=== PATIENT | male | born 1990 ===

== ENCOUNTER 2017-12-12 22:30 | Emergency (ER) | payer OTHER ==
[~2017-12-12] VITALS: Ht 170.2 cm; Wt 89.4 kg
== END 2017-12-12 23:23 | disposition home or self-care (01) ==
LOC: ER 22:30
DX: S61.412A Laceration without foreign body of left hand, initial encounter (principal); W45.8XXA Other foreign body or object entering through skin, initial encounter; Y93.89 Activity, other specified; Y92.098 Other place in other non-institutional residence as the place of occurrence of the external cause; Y99.8 Other external cause status

== ENCOUNTER 2017-12-18 20:34 | Emergency (ER) | payer OTHER ==
[~2017-12-18] VITALS: Ht 167.6 cm; Wt 89.4 kg
== END 2017-12-18 21:43 | disposition home or self-care (01) ==
LOC: ER 20:34
DX: T81.4XXA Infection following a procedure, initial encounter (principal); B99.8 Other infectious disease; Z48.02 Encounter for removal of sutures

== ENCOUNTER 2021-01-30 20:16 | Emergency (ER) | payer OTHER ==
[~2021-01-30] VITALS: Ht 172.7 cm; Wt 95.3 kg
[2021-01-30] MEDS ORDERED: CAMBIA50 MG (20:27)
[2021-01-31] MEDS ORDERED: IVERMECTIN3 MG PO (00:49)
[2021-01-31] MEDS ORDERED: ACETAMINOPHEN650 M2 PO (00:49)
[2021-01-31] MEDS ORDERED: AZITHROMYCIN500 MG PO (00:49)
[2021-01-31] MEDS ORDERED: VITAMIN D3-ALO1 EACH PO (00:49)
[2021-01-31] MEDS ORDERED: MUCINEX DM ER1 EAC1 PO (00:49)
[2021-01-31] MEDS ORDERED: VITAMIN C WIT1000 MG PO (00:49)
[2021-01-31] MEDS ORDERED: MELATONIN10 M2 PO (00:49)
== END 2021-01-31 01:10 | disposition home or self-care (01) ==
LOC: ER 20:16
DX: B34.9 Viral infection, unspecified (principal); Z20.822 Contact with and (suspected) exposure to COVID-19

== ENCOUNTER 2021-07-03 13:41 | Emergency (ER) | payer OTHER ==
[~2021-07-03] VITALS: Ht 172.7 cm; Wt 97.5 kg
[~2021-07-03 13:41] MED LIST: ACETAMINOPHEN650 M2 PO; AZITHROMYCIN500 MG PO; CAMBIA50 MG; IVERMECTIN3 MG PO; MELATONIN10 M2 PO; MUCINEX DM ER1 EAC1 PO; VITAMIN C WIT1000 MG PO; VITAMIN D3-ALO1 EACH PO
[2021-07-03] MEDS ORDERED: CLEOCIN HCL300 MG PO (15:54)
[2021-07-03] MEDS ORDERED: TORADOL60 MG IM (15:54)
== END 2021-07-03 16:08 | disposition home or self-care (01) ==
LOC: ER 13:41
DX: H60.8X1 Other otitis externa, right ear (principal)

== ENCOUNTER → 2021-12-04 | Emergency (ER) | payer OTHER ==
[~2021-12-04] MED LIST changes: +CLEOCIN HCL300 MG PO; +TORADOL60 MG IM
== END | disposition home or self-care (01) ==
LOC: ER 16:51
DX: B34.9 Viral infection, unspecified (principal); Z20.822 Contact with and (suspected) exposure to COVID-19; Z88.0 Allergy status to penicillin; Z91.013 Allergy to seafood